=== PATIENT | female | born 1965 | race Two or more races ===

== ENCOUNTER 2021-04-27 07:38 | Outpatient (CLI) | payer OTHER | END 2021-04-27 07:53 | disposition home or self-care (01) | LOC: SONOGRAMA 07:38 | PROVIDERS: ATTEND Internal Medicine Gastroenterology | DX: R10.11 Right upper quadrant pain (principal); C18.9 Malignant neoplasm of colon, unspecified ==

== ENCOUNTER 2024-01-19 10:26 | Emergency (ER) | payer OTHER ==
[~2024-01-19] VITALS: Ht 160 cm; Wt 68.0 kg
[2024-01-19] MEDS ORDERED: ADDERALL 20 MG20 MG (10:50)
[2024-01-19] MEDS ORDERED: 0.9 % SODIUM CHLORIDE 1,000 ML IV STA (11:44)
[2024-01-19] MEDS ORDERED: MEPERIDINE HCL/PF 50 MG/ML VIAL IM STA (11:45)
[2024-01-19] MEDS ORDERED: PROMETHAZINE HCL 50 MG/ML AMPUL IM STA (11:46)
[2024-01-19] MEDS ORDERED: PROMETHAZINE HCL 50 MG/ML AMPUL IM ONE (11:48)
[2024-01-19 12:06] LABS: HEMATOCRIT 37.7 % (36.0-45.00); HEMOGLOBIN 12.9 g/dL (12.0-15.00); MEAN CELL VOLUME 87.2 fL (80.00-100.00); MEAN CORPUSCULAR HEMOGLOBIN 29.9 pg (27.00-32.0); MEAN CORPUSCULAR HGB CONC 34.2 g/dl (32.0-36.0); PLATELET COUNT 441 K/uL (150-450); RED BLOOD COUNT 4.32 M/uL (4.00-6.00); RED CELL DISTRIBUTION WIDTH 13.5 % (11.5-14.5)
[2024-01-19 13:13] LABS: PARTIAL THROMBOPLASTIN TIME 26.2 SECONDS (22.0-34.0); PROTHROMBIN TIME 10.5 SECONDS (9.0-11.5)
[2024-01-19 13:35] LABS: ALBUMIN 3.6 gm/dL (3.4-5.0); BILIRUBIN TOTAL 0.49 mg/dL (0.3-1.2); BILIRUBIN,CONJUGATED 0.11 mg/dL (0.0-0.2); BILIRUBIN,UNCONJUGATED 0.38 mg/dL (0.0-0.6); CALCIUM 9.6 mg/dL (8.5-10.1); CREATININE SERUM 0.67 mg/dL (0.55-1.02); GFR 89.78; POTASSIUM 4.17 mEq/L (3.5-5.1); TOTAL PROTEIN 7.1 gm/dL (6.4-8.2)
[2024-01-19 14:55] LABS: PH,URINE 6.5 (5.0-8.0); URINE APPEARANCE Cloudy; URINE BILIRRUBIN Negative (NEGATIVE); URINE BLOOD Moderate; URINE COLOR Yellow; URINE GLUCOSE Negative (NEGATIVE); URINE LEUKOCYTE Large; URINE NITRATE Positive; URINE PROTEIN Trace (NEGATIVE)
[2024-01-19 14:59] LABS: URINE EPITHELIAL CELLS 16.3 uL (0.0-38.8); URINE RBC 155.2 uL (0.0-20.8); URINE WBC 431.2 uL (0.0-23.2)
[2024-01-19 15:17] LABS: URINE BACTERIA > 9821.5 uL (0.0-1933)
== END 2024-01-19 15:55 | disposition home or self-care (01) ==
LOC: ER 10:27
PROVIDERS: General Practice
DX: N39.0 Urinary tract infection, site not specified (principal)